=== PATIENT | male | born 1995 | race Two or more races ===

== ENCOUNTER 2021-11-28 18:33 | Emergency (ER) | payer OTHER ==
[~2021-11-28] VITALS: Ht 180.3 cm; Wt 108.9 kg
[2021-11-28] MEDS ORDERED: AMOX-CLAV 875-1 EAC1 PO (20:47)
[2021-11-28] MEDS ORDERED: INTESTINEX680 M1 PO (20:47)
[2021-11-28] MEDS ORDERED: IBU600 MG PO (20:47)
== END 2021-11-28 20:53 ==
LOC: ER 18:33
DX: S61.112A Laceration without foreign body of left thumb with damage to nail, initial encounter (principal); W26.0XXA Contact with knife, initial encounter; Y93.G3 Activity, cooking and baking; Y92.010 Kitchen of single-family (private) house as the place of occurrence of the external cause; Y99.9 Unspecified external cause status